=== PATIENT | female | born 1995 | race Caucasian/White ===

== ENCOUNTER 2016-04-29 16:25 | Inpatient (IN) | payer OTHER ==
[~2016-04-29] VITALS: Ht 167.6 cm; Wt 65.9 kg
[2016-04-29] MEDS ORDERED: LACTATED RINGER'S 1000ML 1,000 ML IV SCH (20:02)
[2016-04-29] MEDS ORDERED: LACTATED RINGER'S 1000ML 1,000 ML IV PRN (20:02)
[2016-04-29] MEDS ORDERED: PRENTAB26 PO (20:25)
[2016-04-29 20:27] LABS: HEMATOCRIT 33.6 % (37-47); MEAN CELL VOLUME 83.2 fL (80-100); MEAN CORPUSCULAR HEMOGLOBIN 27.7 pg (25-34); MEAN CORPUSCULAR HGB CONC 33.3 g/dl (32-36); MEAN PLATELET VOLUME 10.2 fL (7.4-10.4); PLATELET COUNT 170 K/uL (130-400); RED BLOOD COUNT 4.04 M/uL (4.2-5.4); WHITE BLOOD COUNT 8.94 K/uL (4.8-10.8)
[2016-04-29 20:29] VITALS: Ht 167.6 cm; Wt 65.9 kg
[2016-04-29] MEDS ORDERED: EpHEDrine SULFATE INJ 50 MG/ML AMP ONE (21:03)
[2016-04-29] MEDS ORDERED: BUPIVACAINE 0.25% 30 ML VIAL ONE (21:03)
[2016-04-29] MEDS ORDERED: FENTANYL CITRATE INJ 50 MCG/1 ML 2 ML VIAL ONE (21:04)
[2016-04-29] MEDS ORDERED: FENTANYL 2MCG/ML ROPIV 1.25MG/ML 100ML BAG EPI ONE (21:04)
[2016-04-29 21:11] LABS: BENZODIAZEPINE, URINE NEG (NEG); COCAINE,URINE NEG (NEG); PHENCYCLIDINE, URINE NEG (NEG)
[2016-04-29] MEDS ORDERED: LACTATED RINGER'S 1000ML 500 ML IV PRN (21:48)
[2016-04-29] MEDS ORDERED: NALOXONE HCL INJ 1 MG in SODIUM CHLORIDE 0.9% 1000ML 1,000 ML IV PRN ×4 (21:48)
[2016-04-29] MEDS ORDERED: EpHEDrine SULFATE INJ 50 MG/ML AMP IV PRN (22:00)
[2016-04-29] MEDS ORDERED: ONDANSETRON INJ 2 MG/ML 2 ML VIAL IV PRN (22:00)
[2016-04-29] MEDS ORDERED: NALOXONE HCL INJ 0.4 MG/1 ML VIAL/CARP IV PRN (22:00)
[2016-04-29] MEDS ORDERED: DiphenhydrAMINE HCL 50 MG/ML VIAL IV PRN (22:00)
[2016-04-29] MEDS ORDERED: PROMETHAZINE HCL INJ 25 MG in SODIUM CHLORIDE 0.9% 50ML 50 ML IV PRN (22:00)
[2016-04-29] MEDS ORDERED: NALBUPHINE HCL INJ 10 MG/ML AMP IV PRN (22:00)
[2016-04-29] MEDS ORDERED: FENTANYL 2MCG/ML ROPIV 1.25MG/ML 100ML BAG EPI PRN (22:00)
[2016-04-29] MEDS ORDERED: OXYTOCIN 30 UNITS/500ML NSS IV ONE (23:44)
[2016-04-30] MEDS ORDERED: SUPERCREAM 0.870 % 15GM JAR EXT PRN (00:30)
[2016-04-30] MEDS ORDERED: DIPHTHERIA/TETANUS/PERTUSSIS 0.5 ML SYR/VIAL IM. ONE (00:30)
[2016-04-30] MEDS ORDERED: OXYTOCIN 30 UNITS/500ML NSS IV PRN (00:30)
[2016-04-30] MEDS ORDERED: HYDROCORTISONE ACETATE 25 MG SUPP PR PRN (00:30)
[2016-04-30] MEDS ORDERED: BENZOCAINE 20% AER SPR 82.5 GM CAN EXT PRN (00:30)
[2016-04-30] MEDS ORDERED: ACETAMINOPHEN 325 MG TAB PO PRN (00:30)
[2016-04-30] MEDS ORDERED: LANOLIN OINT EXT PRN ×2 (00:30)
--- NOTE | 2016-04-30 02:56 | Anesthesia Procedure Note ---
Anesthesia Epidural Removal Nt Date & Time Apr 30, 2016 at 02:55 Vital Signs Pain Intensity: 0.0 Notes Mental Status: alert / awake / arousable, participated in evaluation Nausea / Vomiting: adequately controlled Pain: adequately controlled Airway Patency, RR, SpO2: stable & adequate BP & HR: stable & adequate Hydration State: stable & adequate Neuraxial Anesthesia: was administered Anesthetic Complications: no major complications apparent, pt satisfied with anesthetic care Epidural: removed without complications, with tip intact
--- NOTE | 2016-04-30 04:31 | DELIVERY SUMMARY ---
DATE OF OPERATION: 04/30/2016 FINDINGS: Viable female with Apgars of 7 and 9. Baby delivered over an intact perineum. Cord gases and cord blood samples were obtained. Placenta delivered spontaneously. Estimated blood loss was 300 mL. LABOR NOTE: The patient is a 20-year-old 1, para 0 with an EDC of 30 April at 39 plus weeks gestational age who was admitted in early active labor. The patient had presented to labor and delivery for a labor check, observed for 4 hours with cervical change and admitted. The patient was late in registering at 15 weeks for care. The patient admitted to cannabis use early in the . The patient had been advised to stop. Blood type A positive. Antibody negative. Rubella immune. Hepatitis B negative. She declined a quad screen. She had a normal 1-hour Glucola x2 and a negative third trimester beta strep culture. Upon admission, the patient was 5 cm dilated, 80% effaced and -2 station. She had artificial rupture of membranes of clear fluid. heart rate tracing was category 2 with moderate variability and accelerations. The patient's contractions increased in intensity after rupture of membranes, anesthesia was consulted and epidural was placed. She progressed for full dilatation and began her second stage. She pushed for a short period of time and delivered a viable female infant over an intact perineum. Cord was clamped and cut and the baby was taken to the resuscitation stand for evaluation. Cord gases and cord blood samples obtained. Placenta was delivered spontaneously. Inspection of the perineum was found to be intact. Estimated blood loss was 300 mL. Sponge and needle counts were correct. I attest to the content of the Intraoperative Record and any orders documented therein. Any exceptio ns are noted below.
[2016-04-30 04:35] VITALS: BP 99/62; PULSE 82; TEMP 36.8
[2016-04-30] MEDS: IBUPROFEN 600 MG TAB PO PRN ×3 (04:57→17:51)
[2016-04-30 07:40] VITALS: BP 110/74; PULSE 75; TEMP 36.5; O2SAT 100
[2016-04-30] MEDS: DOCUSATE SODIUM 100 MG CAP PO SCH ×2 (08:08→19:57)
[2016-04-30] MEDS: PRENATAL VITAMIN TAB PO SCH (08:08)
[2016-04-30] MEDS: FERROUS SULFATE 325 MG TAB PO SCH (08:08)
[2016-04-30 12:10] VITALS: BP 120/77; PULSE 78; TEMP 36.6; O2SAT 100
[2016-04-30 15:40] VITALS: BP 105/69; PULSE 79; TEMP 36.5; O2SAT 99
[2016-04-30 19:55] VITALS: BP 111/70; PULSE 136; TEMP 36.7; O2SAT 99
[2016-04-30] MEDS ORDERED: NURSING DECISION MEDICATION ORDER SCH (20:15)
[2016-04-30] MEDS ORDERED: SODIUM CHLORIDE 0.65% NA SOLN 45 ML (OCEAN) PRN (20:30)
[2016-04-30 23:55] VITALS: BP 114/73; PULSE 76; TEMP 36.6
[2016-05-01] MEDS: IBUPROFEN 600 MG TAB PO PRN (01:21)
--- NOTE | 2016-05-01 06:39 | Progress Note ---
Subjective May 01, 2016. Subjective conversation w/ patient, physical exam Ambulation: ambulating normally Voiding: no voiding problems Passing Gas: Yes Diet Tolerance: Regular Diet Lochia: Small Feeding Type: Breast Feeding Pain: No pain reported this morning Review of Systems Constitutional: No chills, No fever Respiratory: No cough, No shortness of breath Cardiac: No chest pain Breast: No breast pain Abdomen: No nausea, No pain, No vomiting Female : No dysuria Objective Vital Signs Date Time Temp Pulse Resp B/P Pulse Ox O2 Delivery O2 Flow Rate FiO2 04/30/16 23:55 36.6 76 18 114/73 Room Air 04/30/16 23:55 Room Air 04/30/16 19:55 36.7 136 18 111/70 99 Room Air 04/30/16 15:40 36.5 79 16 105/69 99 Room Air 04/30/16 15:40 99 Room Air 04/30/16 12:10 36.6 78 18 120/77 100 Room Air 04/30/16 07:40 36.5 75 16 110/74 100 Room Air 04/30/16 07:40 100 Room Air Physical Exam General Appearance: WELL-APPEARING, WD/WN, NO APPARENT DISTRESS Respiratory/Chest: lungs clear, normal breath sounds Cardiovascular: regular rate, rhythm, no gallop, no murmur Abdomen: normal bowel sounds, non tender, soft Fundus: Firm, Relation to Umbilicus (At umbilicus) Extremities: no calf tenderness Laboratory Results Last 24 Hours Test 05/01/16 04:44 Medications Current Inpatient Medications Medications (Trade) Dose Ordered Sig/Isabell Route Start Time Stop Time Status Last Admin Dose Admin Lactated Ringer's (Lr 1000ml) 1,000 ml @ 125 mls/hr Q8H IV 04/29/16 20:02 05/01/16 20:01 04/29/16 21:42 125 MLS/HR Oxytocin (Pitocin IV) 30 units UD PRN IV 04/30/16 00:30 05/30/16 00:29 04/30/16 00:19 30 UNITS Benzocaine (Dermoplast Aero Spr) 1 appln PRN PRN EXT 04/30/16 00:30 05/30/16 00:29 Cocaine HCl (Supercream 0.870% Cr) BID PRN EXT 04/30/16 00:30 05/14/16 00:29 Hydrocortisone Acetate (Anusol Hc Supp) 25 mg BID PRN SC 04/30/16 00:30 05/30/16 00:29 Lanolin (Lanolin Oint) PRN PRN EXT 04/30/16 00:30 05/30/16 00:29 Prenat Multivit/ [place]/Iron/Folic Ac ( Vitamin Tab) 1 tab DAILY PO 04/30/16 08:00 05/30/16 07:59 04/30/16 08:08 1 TAB Ibuprofen (Motrin Tab) 600 mg Q4H PRN PO 04/30/16 00:30 05/30/16 00:29 05/01/16 01:21 600 MG Acetaminophen (Tylenol Tab) 650 mg Q6H PRN PO 04/30/16 00:30 05/30/16 00:29 Bisacodyl (Dulcolax Tab) 5 mg 20 PO 05/01/16 20:00 05/01/16 20:01 Docusate Sodium (coLACE CAP) 100 mg BID PO 04/30/16 08:00 05/30/16 07:59 04/30/16 19:57 100 MG Ferrous Sulfate (Feosol Tab) 325 mg DAILY PO 04/30/16 08:00 05/30/16 07:59 04/30/16 08:08 325 MG Sodium Chloride ([place] Nasal [place]) 1 sprays PRN PRN NA 04/30/16 20:30 05/30/16 20:29 04/30/16 20:22 1 SPRAYS Assessment and Plan Post- Day#: 1 Continue Routine Care: - Vital Signs reviewed and WNL (temp max 36.6) - Blood Type: A+, GBS- , Rubella Immune - Patient doing well clinically - Encourage Ambulation today - Pain well controlled with Motrin - Tolerating PO diet - Possible discharge today Resident Physician Supervision Note: I interviewed and examined the patient. Discussed with Dr. Schwartz and agree with findings and plan as documented in the note. Any exceptions or clarifications are listed here: [None] Documented By: Vladimir Lizama
--- NOTE | 2016-05-01 06:40 | Discharge Instructions ---
Discharge Instructions Admission Reason for Admission: Check Labor (Dick Schwartz MD) Discharge Discharge Diagnosis / Problem: Vaginal Delivery (Dick Schwartz MD) Discharge Goals Goal(s): Routine recovery after delivery (Dick Schwartz MD) Medications Continue Dispensed Medications: supercream, dermaplast, tucks, lansinoh (Dick Schwartz MD) Activity Recommendations Activity Limitations: per Instructions/Follow-up section . (Dick Schwartz MD) Instructions / Follow-Up Instructions / Follow-Up ACTIVITY RECOMMENDATIONS: * Gradual return to full activity over the next 2-3 weeks. * No lifting - nothing heavier than baby over the next 2-3 weeks. * Do not engage in vigorous exercise, sexual activity or sports until cleared by your physician. * Do not drive or operate any motorized equipment until cleared by your physician. * You may shower/bathe daily. MEDICATIONS: For discomfort or pain, you may use Acetaminophen (Tylenol), Ibuprofen (Advil), or Naproxen (Aleve) following the package directions. For constipation you may use Colace following the package directions. BREAST CARE: If you are not breast feeding: * Wear a supportive bra 24 hours a day for one to two weeks. * Avoid stimulating your breasts and nipples as much as possible during the first few weeks after delivery. * When taking a shower, have the warm water hit your back, not breasts. * When your breasts feel full, apply ice packs. Usually three to four times a day helps ease the discomfort. * Take a mild pain medication (Tylenol / Motrin) when you are uncomfortable. If breast feeding: * Use breast milk to lubricate nipples. Lansinoh cream may be used for sore nipples. You do not need to remove cream prior to breast feeding. If using a different brand of cream, check the label for directions regarding removal of cream prior to nursing. * Wear a supportive bra. * If having problems with breasts or breast feeding, call a search consultant or your health care provider. EPISIOTOMY CARE: After delivery, if you have an episiotomy (stitches), the following steps will ease discomfort and aid healing. * For the first 24 hours after delivery, place ice packs next to your episiotomy to help reduce swelling. * After the first 24 hour-period, sitz baths, either portable or in the tub, are suggested. A shower with a shower arm sprayed over the episiotomy may be comforting. * Heidi care should be done after each voiding and bowel movement. Squirt warm water from a plastic bottle over the perineum (region of the body between the anus and urinary opening) and pat dry. * Use Dermoplast to ease discomfort. Shake container. [place] directly over the episiotomy. Place a Tucks on a clean sanitary pad next to your episiotomy. SPECIAL CARE INSTRUCTIONS: When you are discharged from the hospital, it is important for you to follow the instructions listed below: * During the first week at home, you should be able to care for yourself and your baby. In addition, the usual light household activities are encouraged. * Limit your activities to the way you feel. Do not try to clean the house or move furniture. Be sensible. * If you actively engage in sports and have done so up until the time of your delivery, you may resume these activities as soon as you feel able. This may take up to one month or even longer. Use good judgment. * Continue to take your vitamins for at least six weeks after the of your baby. * Your diet need not be limited unless you were on a special diet before your delivery. Breast-feeding mothers need around 2500 calories per day and at least 64-80 ounces of fluid per day (8 to 10 glasses). * You should eat foods from the four major food groups. Crash diets or fad diets are to be avoided. Eating lean meats, fresh fruits and vegetables, low-fat dairy products, high fiber foods and a regular exercise program, will help you get back to your pre- weight without putting your health at risk. * Constipation is sometimes a problem after delivery. Take a mild laxative as needed. If breast feeding, Milk of Magnesia is acceptable to use. You may use a suppository or Fleets enema if no episiotomy. * A daily shower or tub bath is suggested. Be sure to thoroughly and gently dry the perineum. * A bloody vaginal discharge will usually continue until around four weeks post . A small amount of bleeding may continue for as long as six weeks. Vaginal discharge changes from the bright red bleeding after delivery to pink then brownish and finally yellowish-pink before becoming white and disappearing. * Bleeding may increase with activity. Your first period may come in 4-8 weeks. If you are breast feeding, your period may be delayed even longer. * [employer] (sex) can begin whenever both you and your partner feel comfortable and do not have any form of genital infection. It is recommended that you wait at least six weeks for internal and external healing to occur. If you have questions, please talk to your health care practitioner. A condom should be used to prevent infection and . * Foreplay, gentle intercourse and lubrication is very important the first several times to prevent pain. A water-based lubricant such as K-Y jelly or Astroglide may be used. * If you have RH negative blood and your baby is RH positive, you will receive RHOGAM by injection prior to discharge. The nurse will give you a card to keep with you that has the date and place that you received RHOGAM after delivery. * During your care, you had a Rubella screen done to check for the presence of rubella antibodies in your blood. If your test was negative, you will receive a Rubella vaccine prior to discharge. This vaccine may cause a fever, soreness at the injection site and flu-like symptoms. If these symptoms persist, notify your health care practitioner. is not advised for one month after a Rubella vaccine. * Verbalizes understanding of car seat law as reviewed with patient nursing. * Car Seat hand-out given and reviewed with patient by nursing. * Shaken baby information reviewed with patient by nursing. Call you doctor if: * Heavy bleeding (saturating several pads an hour) or passing clots the size of your fist. * A fever >101 degrees F (38.3 degrees C) on two occasions four hours apart and /or chills. * Unusual pain in the pelvic or vaginal areas. * "Baby Blues" lasting longer than two weeks. If you have any questions or concerns, call your health care practitioner at . FOLLOW UP VISIT: * Please call the office at to schedule a 6 week examination. It is important you keep this appointment. It is important for you to make arrangements for either yearly or twice yearly check-ups thereafter. (Dick Schwartz MD) Current Hospital Diet Patient's current hospital diet: Regular OB Diet (Dick Schwartz MD) Discharge Diet Recommended Diet: Regular Diet (Dick Schwartz MD) Pending Studies Studies pending at discharge: no (Dick Schwartz MD) Medical Emergencies . Who to Call and When: Medical Emergencies: If at any time you feel your situation is an emergency, please call 911 immediately. . (Dick Schwartz MD) Non-Emergent Contact Non-Emergency issues call your: Educational Specialist . (Dick Schwartz MD) . "Provider Documentation" section prepared by Dick Schwartz. (Dick Schwartz MD) VTE Core Measure Inpt VTE Proph given/why not?: Treatment not indicated (Dick Schwartz MD)
[2016-05-01 06:43] LABS: HEMATOCRIT 27.8 % (37-47)
[2016-05-01] MEDS: DOCUSATE SODIUM 100 MG CAP PO SCH (07:48)
[2016-05-01] MEDS: FERROUS SULFATE 325 MG TAB PO SCH (07:48)
[2016-05-01] MEDS: PRENATAL VITAMIN TAB PO SCH (07:48)
[2016-05-01 08:45] VITALS: BP 121/70; PULSE 78; TEMP 36.7; O2SAT 100
[2016-05-01 13:00] VITALS: BP_DIAS 70; PULSE 78; TEMP 36.7
[2016-05-01] MEDS ORDERED: BISACODYL 5 MG TABEC PO SCH (20:00)
== END 2016-05-01 13:50 | disposition home or self-care (01) | DRG 775 ==
LOC: C.OPB 16:25 → C.LD 16:25 → C.OPB 16:31 → C.OBG 04-30 03:14
PROVIDERS: ADMIT Obstetrics & Gynecology; ATTEND Obstetrics & Gynecology
PROC: 10E0XZZ Delivery of Products of Conception, External Approach (ICD-10-PCS; principal; 2016-04-30)
DX: O99.324 Drug use complicating childbirth (principal); F12.90 Cannabis use, unspecified, uncomplicated; O99.52 Diseases of the respiratory system complicating childbirth; J45.909 Unspecified asthma, uncomplicated; O99.02 Anemia complicating childbirth; D64.9 Anemia, unspecified; O76 Abnormality in fetal heart rate and rhythm complicating labor and delivery; Z3A.39 39 weeks gestation of pregnancy; Z37.0 Single live birth

== ENCOUNTER 2017-09-01 00:58 | Emergency (ER) | payer OTHER ==
[~2017-09-01] VITALS: Ht 167.6 cm; Wt 58.6 kg
[~2017-09-01 00:58] MED LIST: PRENTAB26 PO
[2017-09-01 01:04] VITALS: TEMP 36.9; Ht 167.6 cm; Wt 58.6 kg
[2017-09-01] MEDS ORDERED: ONDA4TAB10 SL (03:47)
[2017-09-01] MEDS ORDERED: RALT400T PO (03:47)
[2017-09-01] MEDS ORDERED: TRVHP PO (03:47)
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
[2017-09-01] MEDS ORDERED: MULT-506 PO (03:56)
[2017-09-01] MEDS ORDERED: LEVONORGESTREL (EMERGENCY OC) 1.5 MG TAB PO ONE (04:08)
[2017-09-01] MEDS ORDERED: AZITHROMYCIN 250 MG TAB ONE (04:09)
[2017-09-01] MEDS ORDERED: CEFTRIAXONE SOD 350MG/ML 1 GM VIAL IM ONE (04:09)
[2017-09-01] MEDS ORDERED: HIV POST EXPOSURE PROPHYLAXIS KIT ONE (04:09)
[2017-09-01] MEDS ORDERED: ONDANSETRON HOME PACK 4MG OD TAB ONE (04:09)
[2017-09-01 04:28] VITALS: BP 122/80; PULSE 74; O2SAT 94
== END 2017-09-01 04:28 | disposition home or self-care (01) ==
LOC: C.EDB 01:00
DX: T76.21XA Adult sexual abuse, suspected, initial encounter (principal); S10.93XA Contusion of unspecified part of neck, initial encounter; F17.200 Nicotine dependence, unspecified, uncomplicated

== ENCOUNTER 2018-08-05 22:05 | Inpatient (IN) ==
[2018-08-06] MEDS ORDERED: BUPIVACAINE 0.25% 30 ML VIAL ONE (04:46)
[2018-08-06] MEDS ORDERED: LACTATED RINGER'S 1,000 ML IV PRN ×3 (04:46→08:21)
[2018-08-06] MEDS ORDERED: ePHEDrine sulfate 50 MG/ML AMP ONE (04:46)
[2018-08-06] MEDS ORDERED: fentaNYL citrate 100 MCG/2 ML VIAL ONE (04:46)
[2018-08-06] MEDS ORDERED: OXYTOCIN 30 UNITS/500 ML BAG IV PRN ×3 (04:46→11:49)
[2018-08-06] MEDS ORDERED: fentaNYL 2MCG/ML ROPIV 1.25MG/ML 100 ML BAG EPI ONE (04:47)
[2018-08-06 05:07] LABS: Hematocrit (blood only) 32.7 % (37-47); Hemoglobin 10.5 g/dL (12.0-16.0); Mean Corpuscular Volume 84.5 fL (80-100); Platelet Count 166 K/uL (130-400); RDW Coefficient of Variation 16.1 % (11.5-14.5); RDW Standard Deviation 48.6 fL (36.4-46.3); Red Blood Count 3.87 M/uL (4.2-5.4); White Blood Count 7.38 K/uL (4.8-10.8)
--- NOTE | 2018-08-06 05:24 | History & Physical Report ---
Date of Service August 06, 2018 Assessment & Plan (1) Normal labor: admission. desires epidural. plan arom and . fetus category one. (2) with 39 completed weeks gestation: History of Present Illness Chief Complaint: contractions Primary Care Provider: NO PCP Patient is a 22yowf with iup at 39 weeks who presents to labor and delivery with contractions. no lof/vb. +fm. Walked for a few hours and showed cervical change and admitted for labor. has been uncomplicated. labs--A+/ab-/pap nl/ri/rprnr/hepb-/hiv-/ gc/ct-/gtt x 2 nl/ gbs neg Allergies Allergy/AdvReac Type Severity Reaction Status Date / Time No Known Drug Allergies Allergy Unknown . Verified 09/01/17 03:55 Home Medications Home Medications Medication Instructions Recorded Confirmed Type vit-iron fum-folic ac 1 tab PO DAILY 08/05/18 08/05/18 History [ Vitamin] Patient History Medical History Exercise-induced asthma As a child [place] teeth removed Wrist laceration Social History Preferred Language: Colombian Communication Ability: Effective Tube Sizer Operator Required: No Beliefs That Will Affect Care: None marital status: Single Current Living Situation: Spouse and Family Other Information That Helps Us Care for You: No Feels Safe at Home: Yes Safety Concerns: Feels Safe At This Time Smoking Status: Never smoker Hx Alcohol Use: No Hx Substance Use: No OB History g1--01/09, , 7# g2--05/15, , 7#4oz [employer] History no stds, no abnl paps Review of Systems All systems reviewed & are unremarkable except as noted in HPI & below Physical Exam Vital Signs (Past 24 Hours): Last Vital Signs Temp 36.8 C 08/06/18 04:45 Pulse 76 08/06/18 05:17 Resp 18 08/06/18 04:45 BP 114/74 08/06/18 05:17 Pulse Ox 100 08/06/18 05:16 Constitutional: WD/WN, vitals as above Gastrointestinal (Abdomen): soft, gravid, nt Genitourinary: cx--started 2/50/-2 and progressed to 5.5cm toco--q2-4min efm--115 with mod variability, accels to 150s, no decels
[2018-08-06 05:29] LABS: Mean Corpuscular Hgb Conc 32.1 g/dL (32-36)
--- NOTE | 2018-08-06 05:29 | Anesthesiology Consultation ---
Date of Service August 06, 2018 Assessment & Plan Chart Review Chart Review: Patient NOT seen in Pre Admission Testing and Acceptable Risk for Labor Epidural Consults Requested none ASA ASA2 Proposed Anesthesia Anesthesia Type: Labor Epidural Risk / Benefits Reviewed With: PT / POA / Parent / Guardian, Accepts Plan and Informed Consent Obtained NPO Date Last Intake of Fluids: 08/05/18 Time Last Intake of Fluids: 06:10 Date Last Intake of Solids: 08/05/18 Time Last Intake of Solids: 18:30 History Height/Weight Height: 5 ft 6 in Weight: 70.307 kg Allergies Allergy/AdvReac Type Severity Reaction Status Date / Time No Known Drug Allergies Allergy Unknown . Verified 09/01/17 03:55 Medications Home Medications Medication Instructions Recorded Confirmed Last Taken vit-iron fum-folic ac 1 tab PO DAILY 08/05/18 08/05/18 08/05/18 [ Vitamin] Active Medications Generic Name Dose Route Start Last Admin Trade Name Freq PRN Reason Stop Dose Admin Lactated Ringer's 1,000 mls @ 999 mls/hr 08/06/18 04:46 08/06/18 05:36 Lr IV 09/05/18 04:45 Infused .Q1H1M PRN Infusion (Pre-Anesthesia) Lactated Ringer's 1,000 mls @ 125 mls/hr 08/06/18 05:00 08/06/18 06:07 Lr IV 08/08/18 04:59 999 mls/hr .Q8H KELSEY Titration Past Medical History Medical History Exercise-induced asthma As a child [place] teeth removed Wrist laceration Past Anesthesia History No Hx of Anesthesia Complications History of PONV No Motion Sickness Screening History of Motion Sickness: No Social History Smoking Status: Never smoker Hx Alcohol Use: No Hx Substance Use: No Exercise / Class Metabolic Activity II 4-5 Yardwork/Stairs/Walk up hill Review of Systems Negative for chest pain or shortness of breath. Patient denies numbness, tingling or weakness in upper extremities. Patient denies numbness, tingling or weakness in lower extremities. Patient denies history of abnormal bleeding or bleeding disorder. Patient denies active use of anticoagulants other than low dose aspirin. Physical Exam Vital Signs Last Vital Signs Temp 36.8 C 08/06/18 04:45 Pulse 71 08/06/18 05:21 Resp 18 08/06/18 04:45 BP 114/74 08/06/18 05:17 Pulse Ox 100 08/06/18 05:21 Constitutional not obese (Gravid uterus) ENMT Mouth: + small oral opening; no TMJ abnormality Thyromental Distance: > or= 3.5 Finger Breadths Mallampati Class: III Mouth / Teeth: 1. Broken Neck normal visual inspection; neck extension not limited Respiratory normal respiratory effort Auscultation: lungs clear to auscultation bilaterally Cardiovascular Rate/Rhythm: regular rate and regular rhythm Heart Sounds: no murmur Neurologic moves all extremities Motor/Sensory: + sensory deficit (Left hand) Psychiatric A+Ox3, euthymic affect Orientation: alert and oriented x 3 Testing Laboratory Results 08/06/18 04:53
[2018-08-06] MEDS: LACTATED RINGER'S 1,000 ML IV SCH ×2 (05:40→07:05)
[2018-08-06] MEDS ORDERED: DiphenhydrAMINE HCL 50 MG/ML VIAL IV PRN (06:17)
[2018-08-06] MEDS ORDERED: NALBUPHINE HCL INJ 10 MG/ML AMP IV PRN (06:17)
[2018-08-06] MEDS ORDERED: NALOXONE HCL 0.4 MG/1 ML VIAL/CARP IV PRN (06:17)
[2018-08-06] MEDS ORDERED: fentaNYL 2MCG/ML ROPIV 1.25MG/ML 100 ML BAG EPI PRN (06:17)
[2018-08-06] MEDS ORDERED: ONDANSETRON INJ 2 MG/ML 2 ML VIAL IV PRN (06:17)
[2018-08-06] MEDS ORDERED: ePHEDrine sulfate 50 MG/ML AMP IV PRN (06:17)
[2018-08-06] MEDS ORDERED: NALOXONE HCL 1 MG in SODIUM CHLORIDE 0.9% 1000ML 1,000 ML IV PRN (06:17)
--- NOTE | 2018-08-06 08:03 | Labor Progress Brief Note ---
Date of Service August 06, 2018 Subjective Comfortable after epidural Assessment & Plan (1) Normal labor: Doing well. Expectant management after arom. Anticipate . Physical Exam Vital Signs (Past 24 Hours): Last Vital Signs Temp 36.4 C L 08/06/18 07:15 Pulse 101 H 08/06/18 07:56 Resp 18 08/06/18 07:15 BP 118/66 08/06/18 07:55 Pulse Ox 100 08/06/18 07:56 Constitutional: WD/WN, vitals as above Genitourinary: cx--stretchy 7-8/ 90/-2 arom--clear toco--q2-4min efm--130s with mod variability, +accels, no decels
[2018-08-06] MEDS ORDERED: HYDROCORTISONE ACETATE 25 MG SUPP PR PRN (11:49)
[2018-08-06] MEDS ORDERED: SUPERCREAM 0.870% 15 GM JAR EXT PRN (11:49)
[2018-08-06] MEDS ORDERED: OXYCODONE/ACETAMINOPHEN 5mg/325mg TAB PO PRN (11:49)
[2018-08-06] MEDS ORDERED: DIPHTHERIA/TETANUS/PERTUSSIS 0.5 ML SYR/VIAL IM ONE (11:49)
[2018-08-06] MEDS ORDERED: SIMETHICONE 80 MG CHEW PO PRN (11:49)
[2018-08-06] MEDS ORDERED: ZOLPIDEM TARTRATE 5 MG TAB PO PRN (11:49)
[2018-08-06] MEDS ORDERED: BENZOCAINE 20% AER SPR 82.5 GM CAN EXT PRN (11:49)
[2018-08-06] MEDS ORDERED: ACETAMINOPHEN 325 MG TAB PO PRN (11:49)
--- NOTE | 2018-08-06 12:05 | Anesthesia Procedure Note ---
Date of Service August 06, 2018 Anesthesia Post Epidural Note Vital Signs Vital Signs: Temp Pulse Resp BP Pulse Ox 36.5 C 84 18 92/54 L 98 08/06/18 10:47 08/06/18 12:01 08/06/18 11:24 08/06/18 11:55 08/06/18 12:01 Notes Mental Status: alert / awake / arousable and participated in evaluation Nausea / Vomiting: adequately controlled Pain: adequately controlled Airway Patency, RR, SpO2: stable & adequate BP & HR: stable & adequate Hydration State: stable & adequate Neuraxial Anesthesia: was administered and sensory block is resolving Anesthetic Complications: no major complications apparent Epidural: Removed without complications and With tip intact
--- NOTE | 2018-08-06 12:24 | Delivery Summary ---
DATE OF OPERATION: 08/06/2018 The patient is a 22-year-old 3, para 2-0-0-2, white female who presented at 39 weeks with regular contractions. At 8 cm dilated, membranes were ruptured for clear fluid. She had received effective epidural analgesia prior to this. She required Pitocin augmentation for her contractions after her membranes were ruptured. She progressed to full dilation and pushed effectively over intact perineum for delivery of a viable male . Mouth and nasopharynx were suctioned after the was placed on mother's abdomen for further attention. There was vigorous crying and the infant was moving all 4 limbs. The cord was clamped and cut after 30 seconds. Cord blood was obtained. The placenta was expressed intact with a 3-vessel cord. bleeding was controlled with dilute Pitocin. The peritoneum was noted to be intact. Estimated blood loss was 400 mL. Mother and infant are doing well after delivery. I attest to the content of the Intraoperative Record and any orders documented therein. Any exception s are noted below.
[2018-08-06] MEDS: IBUPROFEN 600 MG TAB PO PRN (19:38)
[2018-08-06] MEDS: DOCUSATE SODIUM 100 MG CAP PO SCH (19:38)
--- NOTE | 2018-08-07 07:03 | Obstetrical Progress Note ---
Date of Service <Ricky Guillermo DO - Last Filed: 08/07/18 07:21> August 07, 2018 Assessment & Plan <Ricky Guillermo - Last Filed: 08/07/18 07:21> (1) Spontaneous vaginal delivery: 22 y/o, , at 39 weeks, A+, GBS- - continue routine post- care until discharge home today - discharge instructions reviewed at bedside (2) with 39 completed weeks gestation: (3) Normal labor: Subjective <Ricky Guillermo - Last Filed: 08/07/18 07:21> Ambulation: ambulating normally Voiding: no voiding problems Passing Gas:: Yes Diet Tolerance:: regular diet Lochia:: Small Feeding Type:: breast feeding Karissa states she is doing well this morning, no acute events overnight. She denies fever, chills, chest pain, shortness of breath, nausea, vomiting. She states she is ready for discharge home today. Physical Exam <Ricky Guillermo - Last Filed: 08/07/18 07:21> Vital Signs (Past 24 Hours) Last Vital Signs Temp 36.8 C 08/07/18 04:30 Pulse 62 08/07/18 03:30 Resp 18 08/07/18 03:30 BP 98/64 L 08/07/18 03:30 Pulse Ox 99 08/06/18 15:35 Constitutional WD/WN, vitals as above cooperative and comfortable Eyes + anicteric sclerae and EOM intact bilaterally Neck normal visual inspection and trachea midline Respiratory normal respiratory effort, lungs clear to auscultation Cardiovascular Rate/Rhythm: regular rate and regular rhythm Gastrointestinal (Abdomen) uterine fundus is firm, non-tender, 2cm below umbilicus Musculoskeletal Head/Neck/Chest: normocephalic and head atraumatic Skin no rashes, warm and dry Neurologic moves all extremities and awake Psychiatric A+Ox3, euthymic affect Results & Data <Ricky Guillermo - Last Filed: 08/07/18 07:21> Laboratory Results Laboratory Results - last 24 hr 08/07/18 06:38 WBC 7.11 RBC 3.59 L Hgb 9.8 L Hct 31.1 L MCV 86.6 MCH 27.3 MCHC 31.5 L RDW Std Deviation 51.0 H RDW Coeff of Emani 16.4 H Plt Count 162 MPV 10.9 H Medications Administered Docusate Sodium (Colace) 100 mg PO BID KELSEY Stop: 09/05/18 20:59 Last Admin: 08/06/18 19:38 Dose: 100 mg Documented by: [id number] Ibuprofen (Motrin) 600 mg PO Q4H PRN PRN Reason: Pain/BARBOUR/Cramping/Fever Stop: 09/05/18 11:48 Last Admin: 08/06/18 19:38 Dose: 600 mg Documented by: [id number] <Yolis Mooney MD, FACOG - Last Filed: 08/07/18 07:34> Co-Signing Physician Notes Resident Physician Supervision Note: I interviewed and examined the patient. Discussed with Dr. Leon Guillermo and agree with findings and plan as documented in the note. Any exceptions or clarifications are listed here: [None] Documented By: Yolis Mooney MD, FACOG
[2018-08-07 07:08] LABS: Hematocrit (blood only) 31.1 % (37-47); Hemoglobin 9.8 g/dL (12.0-16.0); Mean Corpuscular Hgb Conc 31.5 g/dL (32-36); Mean Corpuscular Volume 86.6 fL (80-100); Mean Platelet Volume 10.9 fL (7.4-10.4); Platelet Count 162 K/uL (130-400); RDW Coefficient of Variation 16.4 % (11.5-14.5); Red Blood Count 3.59 M/uL (4.2-5.4); White Blood Count 7.11 K/uL (4.8-10.8)
[2018-08-07] MEDS: DOCUSATE SODIUM 100 MG CAP PO SCH (08:56)
[2018-08-07] MEDS: IBUPROFEN 600 MG TAB PO PRN (08:56)
[2018-08-07] MEDS ORDERED: PRENATAL VITAMIN 1 TAB PO SCH (09:00)
[2018-08-07] MEDS ORDERED: BISACODYL 5 MG TABEC PO SCH (20:00)
[2018-08-08] MEDS ORDERED: BISACODYL 10 MG SUPP PR PRN (06:00)
== END 2018-08-07 15:30 | disposition home or self-care (01) | DRG 807 ==
LOC: OPB 22:05 → 4S1 22:07 → 4S2 08-06 14:40

== ENCOUNTER 2023-11-02 00:02 | Inpatient (IN) ==
[2023-11-02] MEDS ORDERED: LIDOCAINE 1% LOCAL 20 ML VIAL INFIL PRN (03:14)
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
[2023-11-02] MEDS: LACTATED RINGER'S 1,000 ML IV PRN (03:38)
[2023-11-02] MEDS ORDERED: BUPIVACAINE 0.25% PF 30 ML VIAL EPI PRN (04:03)
[2023-11-02] MEDS ORDERED: ROPIVACAINE 0.5% PF 5 MG/ML 20 ML VIAL EPI PRN (04:03)
[2023-11-02] MEDS ORDERED: diphenhydrAMINE 50 MG/ML VIAL IV PRN (04:03)
[2023-11-02] MEDS ORDERED: LIDOCAINE 2% MPF LOCAL 5 ML VIAL EPI PRN (04:03)
[2023-11-02] MEDS ORDERED: fentaNYL citrate PF 100 MCG/2 ML VIAL EPI PRN (04:03)
[2023-11-02] MEDS ORDERED: ePHEDrine sulfate 50 MG/ML AMP IV PRN (04:03)
[2023-11-02] MEDS ORDERED: NALBUPHINE HCL 5 MG in SYRINGE 0 ML IV PRN (04:03)
[2023-11-02] MEDS ORDERED: NALOXONE HCL 1 MG in SODIUM CHLORIDE 0.9% 1,000 ML IV PRN (04:03)
[2023-11-02] MEDS ORDERED: NALOXONE HCL 0.4 MG/1 ML VIAL/CARP IV PRN (04:03)
[2023-11-02] MEDS ORDERED: SODIUM CHLORIDE 0.9% PF INJ 10 ML VIAL EPI PRN (04:03)
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
[2023-11-02 04:05] LABS: Hematocrit (blood only) 33.9 % (37.0-47.0); Hemoglobin 10.9 g/dl (12.0-16.0); Mean Corpuscular Hemoglobin 28.1 pg (25.0-34.0); Mean Corpuscular Hgb Conc 32.2 g/dL (32.0-36.0); Mean Corpuscular Volume 87.4 fL (80.0-100.0); Mean Platelet Volume 10.6 fL (9.4-12.4); Platelet Count 201 K/uL (130-400); RDW Coefficient of Variation 14.5 % (11.5-14.5); RDW Standard Deviation 45.8 fL (36.4-46.3); Red Blood Count 3.88 M/uL (4.20-5.40); White Blood Count 8.05 K/ul (4.8-10.8)
[2023-11-02 04:40] LABS: Amphetamines+Metham, Urine Neg (Neg); Barbiturates, Urine Neg (Neg); Benzodiazepine, Urine Neg (Neg); Cocaine, Urine Neg (Neg); Fentanyl, Urine Neg (Neg); MDMA (Ecstacy), Urine Neg (Neg); Marijuana, Urine Pos (Neg); Methadone, Urine Neg (Neg); Opiate, Urine Neg (Neg); Phencyclidine, Urine Neg (Neg)
[2023-11-02] MEDS: LIDOCAINE 2%/EPINEPHRINE 1:200,000 20 ML PF EPI STA (04:43)
[2023-11-02] MEDS: BUPIVACAINE 0.25% PF 30 ML VIAL EPI STA (04:44)
[2023-11-02] MEDS: fentANYL 2 MCG/ML BUPIVacaine 0.125%-NSS 100ML BAG EPI PRN (04:45)
[2023-11-02] MEDS: fentaNYL citrate PF 100 MCG/2 ML VIAL EPI STA (04:48)
[2023-11-02] MEDS: LIDOCAINE 2%/EPINEPHRINE 1:200,000 20 ML PF ONE (04:48)
[2023-11-02] MEDS: BUPIVACAINE 0.25% PF 30 ML VIAL ONE (04:48)
[2023-11-02] MEDS: SODIUM CHLORIDE 0.9% PF INJ 10 ML VIAL ONE (04:48)
[2023-11-02] MEDS: fentANYL 2 MCG/ML BUPIVacaine 0.125%-NSS 100ML BAG ONE (04:48)
[2023-11-02] MEDS: fentaNYL citrate PF 100 MCG/2 ML VIAL ONE (04:48)
[2023-11-02] MEDS: SODIUM CHLORIDE 0.9% PF INJ 10 ML VIAL EPI STA (04:49)
[2023-11-02] MEDS: OXYTOCIN 30 UNITS/NSS 30 UNITS/500 ML BAG IV PRN (05:40)
--- NOTE | 2023-11-02 05:52 | Delivery Summary ---
Vaginal Delivery Summary Date of Service November 02, 2023 Vaginal Delivery Summary [facility] PREOPERATIVE DIAGNOSIS: 1. Single intrauterine at 39 2/7 wga 2. Labor POSTOPERATIVE DIAGNOSIS: 1. Single intrauterine at 39 2/7 wga 2. Labor 3. Delivered PROCEDURE: 1. Normal spontaneous vaginal delivery. SURGEON: Laura Ashford MD ANESTHESIA: Epidural. QUANTITATIVE BLOOD LOSS: 79 mL FLUIDS: Continuous LR. URINE OUTPUT: Not measured COMPLICATIONS: None. CONDITION: Stable. INDICATIONS: 28 yo at 39 2/7 wga presented w/ ctx increasing in frequency and intensity. She was 3-4cm on arrival and progressed to 5cm. She received an epidural and progressed to complete and desired to push FINDINGS: A viable male , weight pending with Apgars of 8 and 9 at 1 and 5 minutes respectively. SPECIMEN: Cord blood OPERATIVE REPORT: The patient progressed to 10 cm, 100% effaced and +2 station, pushed over intact perineum with anesthesia to deliver a viable male infant, weight and Apgars as above. Head of delivered in PAMELA position. No nuchal cord was present. Body and shoulders were delivered without difficulty. was delivered to maternal abdomen and nursing staff. Delayed cord clamping was performed for 60 seconds. Cord was clamped and cut. Cord blood was obtained. Placenta delivered spontaneously intact with 3-vessel cord. IV oxytocin and fundal massage were given for excellent hemostasis. Vagina, cervix, perineum, and placenta were inspected. No lacerations were noted. Sponge and needle counts correct x2. No sponges were left behind. Mother and stable in immediate period. [facility] Vaginal Delivery Charge Vaginal Delivery Codes: 43100 global code for the antepartum, delivery, and post- Delivery Type Details: [facility]
[2023-11-02] MEDS: ePHEDrine sulfate 50 MG/ML AMP ONE (05:59)
[2023-11-02] MEDS ORDERED: bisacodyL 10 MG SUPP PR PRN (06:51)
[2023-11-02] MEDS ORDERED: HYDROCORTISONE ACETATE 25 MG SUPP PR PRN (06:51)
[2023-11-02] MEDS ORDERED: OXYTOCIN 30 UNITS/NSS 30 UNITS/500 ML BAG IV PRN (06:51)
[2023-11-02] MEDS: DIPHTHER/TETAN/PERTUS Vaccine (Tdap, Adol/Adult) 0.5mL IM ONE (07:03)
[2023-11-02] MEDS: PRENATAL VITAMIN 1 TAB PO SCH (07:20)
[2023-11-02] MEDS: FERROUS SULFATE 325 MG TAB PO SCH (07:20)
[2023-11-02] MEDS: IBUPROFEN 600 MG TAB PO PRN (07:20)
[2023-11-02] MEDS: DOCUSATE SODIUM 100 MG CAP PO SCH (07:20)
[2023-11-02] MEDS: BENZOCAINE 20% SPRY 85 APPLN/85 GM CAN EXT PRN (07:24)
--- NOTE | 2023-11-02 07:53 | Anesthesia Procedure Note ---
Date of Service November 02, 2023 Anesthesia Post Epidural Note Vital Signs Vital Signs: Temp Pulse Resp BP Pulse Ox O2 Del Method 36.4 C L 63 18 105/71 99 Room Air 11/02/23 04:45 11/02/23 07:48 11/02/23 06:45 11/02/23 07:48 11/02/23 05:43 11/02/23 00:27 Notes Mental Status: alert / awake / arousable and participated in evaluation Nausea / Vomiting: adequately controlled Pain: adequately controlled Airway Patency, RR, SpO2: stable & adequate BP & HR: stable & adequate Hydration State: stable & adequate Neuraxial Anesthesia: was administered and sensory block is resolving Anesthetic Complications: no major complications apparent and Pt Satisfied with anesthetic care Epidural: Removed without complications and With tip intact
[2023-11-02] MEDS: ACETAMINOPHEN 325 MG TAB PO PRN (23:36)
--- NOTE | 2023-11-03 08:49 | Obstetrical Progress Note ---
Date of Service November 03, 2023 Assessment & Plan (1) Encounter for pre-operative examination: day #1 the patient meets discharge criteria she is having minimal bleeding no pain no depression no extremity pain Subjective Ambulation: ambulating normally Voiding: no voiding problems Passing Gas:: Yes Diet Tolerance:: regular diet Lochia:: Small Feeding Type:: breast feeding Physical Exam Constitutional WD/WN, vitals as above well developed and well nourished Respiratory normal respiratory effort, lungs clear to auscultation normal respiratory effort Cardiovascular RRR, no murmur, no edema Gastrointestinal (Abdomen) normal bowel sounds, soft, nontender, no hepatosplenomegaly Results & Data Vital Signs (Past 12 Hours) Vital Signs Temp Pulse Resp BP Pulse Ox O2 Del Method 11/03/23 08:00 97.5 F L 58 L 18 116/75 99 Room Air 11/03/23 03:00 98.1 F 54 L 18 111/68 95 Room Air 11/02/23 23:20 97.9 F 59 L 18 108/70 98 Room Air
[2023-11-03] MEDS ORDERED: bisacodyL 5 MG TABEC PO SCH (20:00)
[2023-11-04 09:12] LABS: Marijuana Quant, GCMS Urine 1052 ng/mL (<5)
== END 2023-11-03 11:45 | disposition home or self-care (01) | DRG 807 ==
LOC: OPB 00:02 → 4S1 00:04 → 4E2 08:35
DX: Z3A.39 39 weeks gestation of pregnancy; Z37.0 Single live birth; O80 Encounter for full-term uncomplicated delivery